=== PATIENT | female | born 1995 | race Caucasian/White ===

== ENCOUNTER 2023-06-15 00:46 | Emergency (ER) | payer BC, SELFPAY ==
[2023-06-15] VITALS (10 sets, daily range): BP systolic 114–139; BP diastolic 70–106; PULSE 94–109; RESP 7–22; TEMP 37.2; O2SAT 97–99; BMI 21.4
--- NOTE | 2023-06-15 01:00 | DI.RAD.S_ITS ---
PROCEDURE: XR CHEST 1V INDICATIONS: Shortness of breath TECHNIQUE: One view of the chest was acquired. COMPARISON: None. FINDINGS: Surgical changes and devices: None. Lungs and pleura: Lungs are clear. No pleural effusions or pneumothorax. Mediastinum: Mediastinal contours appear normal. Heart size is normal. Bones and chest wall: No suspicious bony lesions. Overlying soft tissues appear unremarkable. IMPRESSION: Portable chest within normal limits for age. Dictated by: Kait Garrison M.D. on 06/15/2023 at 1:18 Approved by: Kait Garrison M.D. on 06/15/2023 at 1:19
--- NOTE | 2023-06-15 01:26 | ED_ITS ---
HPI - General Adult General Chief complaint: Shortness of Breath/Dyspnea Stated complaint: sob struggling 4th night Time Seen by Provider: 06/15/23 00:51 Source: patient Mode of arrival: Ambulatory History of Present Illness HPI narrative: Patient is a 28-year-old female who is here for evaluation of shortness of breath. She has had issues with shortness of breath and wheezing for the past 15 years. She has had pulmonary function testing in the past and was told that she did not have asthma. She states that for the past 15 years it has been varying in how often she gets the symptoms. It could be anything from a couple times a week to several months. It does seem to happen sometimes when she is exercising but then not an other times. This evening she is here because of the shortness of breath. This is the 4th time this week that she is had the wheezing. No fevers. No chest pain. She states she normally tries to go to sleep and then when she wakes up in the morning her symptoms are somewhat improved. Today she was not having any symptoms during the day but then this evening they started. Unsure what triggers the symptoms. She states she is allergic to albuterol. This is based on the fact that she had symptoms which she was young. Was sent home with an albuterol inhaler she took the albuterol and that seemed to make the symptoms worse. She has not tried albuterol since then. She is not currently on any steroids. Related Data Previous Rx's Medication Instructions Recorded prednisone 20 mg tablet 20 mg PO DAILY 6 days #6 tabs 06/15/23 Allergies Allergy/AdvReac Type Severity Reaction Status Date / Time Penicillins Allergy Unknown Rash Verified 01/28/22 15:28 Review of Systems Constitutional Constitutional: Reports system reviewed and no additional complaints, except as documented Cardiovascular Cardiovascular: Reports system reviewed and no additional complaints, except as documented Respiratory Respiratory: Reports system reviewed and no additional complaints, except as documented Gastrointestinal Gastrointestinal: Reports system reviewed and no additional complaints, except as documented Neurologic Neurologic: Reports system reviewed and no additional complaints, except as documented Allergic/Immunologic Allergic/Immunologic: Reports system reviewed and no additional complaints, except as documented Patient History Social History Smoking Status: Never smoker Smoking Status: Never smoker alcohol intake frequency: holidays/special occasions only Substance Use Type: marijuana Exam Initial Vital Signs Initial Vital Signs: Vital Signs Temperature 98.9 F 06/15/23 00:50 Pulse Rate 109 H 06/15/23 00:50 Respiratory Rate 22 06/15/23 00:50 Blood Pressure 124/84 06/15/23 00:50 Pulse Oximetry 99 06/15/23 00:50 Oxygen Delivery Method Room Air 06/15/23 00:50 Const General: cooperative, comfortable and No ill appearing HENMT Head: normal to inspection Resp Effort & Inspection: not labored, respiratory distress and tachypneic Auscultation: wheezes Cardio Rate: tachycardic Rhythm: regular rhythm GI Inspection: normal to inspection and non-distended Skin General: no rashes or lesions noted Neuro General: patient alert, patient awake and moves all extremities Extrem General: normal to inspection and capillary refill normal Course Orders Ordered: ED Orders 06/15/23 01:00 XR chest 1V Stat EKG-12 Lead Stat 06/15/23 01:08 Covid-19 + FLU A/B + RSV - PCR Stat 06/15/23 01:25 RT Consult Eval and Treat Now Albuterol (Albuterol Hfa Prepack) 1 box MISC SEEINSTR ONE Stop: 06/15/23 02:56 Discontinued Medications Albuterol (Albuterol 2.5 Mg/3 Ml Neb (Adult)) 2.5 mg INH NOW ONE Stop: 06/15/23 01:56 Last Admin: 06/15/23 01:57 Dose: 2.5 mg Documented By: RICHARD Ipratropium [place] (Ipratropium 0.5 Mg/2.5 Ml Neb) 0.5 mg INH NOW ONE Stop: 06/15/23 01:27 Last Admin: 06/15/23 01:32 Dose: 0.5 mg Documented By: RICHARD Prednisone (Prednisone 20 Mg Tablet) 20 mg PO NOW ONE Stop: 06/15/23 01:26 Last Admin: 06/15/23 01:41 Dose: 20 mg Documented By: TEVIN Vital Signs Vital signs: Vital Signs - 8 hr 06/15/23 00:50 06/15/23 01:04 06/15/23 01:17 Temperature 98.9 F Pulse Rate 109 H 104 H Respiratory Rate 22 Blood Pressure 124/84 124/106 H Pulse Oximetry 99 99 Oxygen Delivery Method Room Air Oxygen Flow Rate Fraction of Inspired Oxygen 06/15/23 01:17 06/15/23 01:30 06/15/23 01:32 Temperature Pulse Rate 101 H 98 H 95 H Respiratory Rate 8 L 8 L 20 Blood Pressure Pulse Oximetry 99 99 98 Oxygen Delivery Method Room Air Oxygen Flow Rate 0 Fraction of Inspired Oxygen 21 06/15/23 01:43 06/15/23 01:43 06/15/23 01:57 Temperature Pulse Rate 96 H 104 H Respiratory Rate 8 L 16 Blood Pressure 139/70 Pulse Oximetry 97 98 Oxygen Delivery Method Room Air Oxygen Flow Rate 0 Fraction of Inspired Oxygen 21 06/15/23 02:00 06/15/23 02:30 06/15/23 02:30 Temperature Pulse Rate 94 H 100 H Respiratory Rate 7 L 9 L Blood Pressure 114/71 Pulse Oximetry 99 98 Oxygen Delivery Method Oxygen Flow Rate Fraction of Inspired Oxygen Medical Decision Making Lab Data Lab results reviewed: Yes I reviewed the patient's lab results. Labs: Lab Results 06/15/23 Range/Units 01:08 SARS-CoV-2 (PCR) Negative (Negative) Influenza A (RT-PCR) Flu a negative (NEGATIVE) Influenza B (RT-PCR) Flu b negative (NEGATIVE) RSV (PCR) Negative (Negative) Imaging Data Chest x-ray: Radiologist's Impression: PROCEDURE: XR CHEST 1V INDICATIONS: Shortness of breath TECHNIQUE: One view of the chest was acquired. COMPARISON: None. FINDINGS: Surgical changes and devices: None. Lungs and pleura: Lungs are clear. No pleural effusions or pneumothorax. Mediastinum: Mediastinal contours appear normal. Heart size is normal. Bones and chest wall: No suspicious bony lesions. Overlying soft tissues appear unremarkable. IMPRESSION: Portable chest within normal limits for age. ECG Data Attestation: I personally reviewed and interpreted this ECG as follows: Interpretation: Sinus rhythm Ventricular rate 104 Normal QRS Normal QTC No ST T wave changes MDM Narrative Medical decision making narrative: Patient arrived with fairly significant wheezing. Was tachycardic. She initially stated that she was allergic to albuterol but this was based off of an issue that happened when she was much younger. She was given an Atrovent neb initially but this did not improve her symptoms very much. Respiratory therapy had a discussion with the patient regarding her allergy. She agreed to try an albuterol neb here. Afterwards her symptoms almost completely resolved. Her chest x-ray shows no signs of pneumonia. COVID/flu testing negative. No indication for antibiotics. Unsure the exact etiology of the patient's symptoms however I do feel that she would benefit from a referral to see pulmonology. She was informed to contact her primary doctor for this. Will send her home with steroids. She was given return precautions. She expressed understanding and agreement. Discharge Plan Departure Patient Disposition: Home Clinical Impression: Diffuse wheezing Activity Restrictions/Additional Instructions: Do think that is important that you contact your primary doctor for further evaluation. I think you would most likely benefit from a referral to see pulmonology. Use the albuterol inhaler as needed. Take the steroids like we discussed. Return to the emergency department for new or worsening symptoms. Prescriptions: New prednisone 20 mg tablet 20 mg PO DAILY 6 Days Qty: 6 0RF Referrals: Ginna Goodman ARNP [Primary Care Provider] - Kia Zuniga MD [Physician] - Stand Alone Forms: Patient Portal/API
[2023-06-15] MEDS: IPRATROPIUM 0.5 MG/2.5 ML NEB INH (01:32)
[2023-06-15] MEDS: predniSONE 20 MG TABLET PO (01:41)
[2023-06-15] MEDS: ALBUTEROL 2.5 MG/3 ML NEB (ADULT) INH (01:57)
[2023-06-15 02:01] LABS: Influenza A - CEPHEID Flu A NEGATIVE (NEGATIVE); Influenza B - CEPHEID Flu B NEGATIVE (NEGATIVE); Respiratory Syncytial Virus Negative (Negative)
[2023-06-15 02:08] LABS: COVID-19 CEPHEID 4-PLEX PCR Negative (Negative)
--- NOTE | 2023-06-15 02:23 | RT ---
0208 - post albuterol breathing tx, no adverse effects noted. Pt stable. Dr. Arango and TARA Mares notified.
[2023-06-15] MEDS: ALBUTEROL HFA PREPACK 1 BOX MISC (03:03)
== END 2023-06-15 03:11 | disposition home or self-care (01) ==
PROVIDERS: Emergency Provider Emergency Medicine; PCP Nurse Practitioner Family
DX: R06.2 Wheezing (principal); R00.0 Tachycardia, unspecified; Z20.822 Contact with and (suspected) exposure to COVID-19
CPT/HCPCS: 0241U; 71045; 93005; 99284; J7613

== ENCOUNTER → 2023-08-02 10:13 | Outpatient (CLI) | payer BC, SELFPAY | LOC: RESP 10:14 | PROVIDERS: PCP Student in an Organized Health Care Education/Training Program; Referring Provider Student in an Organized Health Care Education/Training Program; Visit Provider Student in an Organized Health Care Education/Training Program | DX: J45.909 Unspecified asthma, uncomplicated (principal); R06.02 Shortness of breath | CPT/HCPCS: 94060; 94726; 94729 ==